=== PATIENT | female | born 1945 | race Caucasian/White ===

== ENCOUNTER 2022-07-03 09:41 | Day surgery (SDC) | payer MEDICARE, SELFPAY ==
[2022-07-03] VITALS (33 sets, daily range): BP systolic 136–175; BP diastolic 56–93; PULSE 67–87; RESP 14–20; TEMP 36.2–37.4; O2SAT 75–100; BMI 20.5
[2022-07-03] MEDS: LACTATED RINGERS 1000 ML 1,000 ML 100 ML IV (10:00)
[2022-07-03] MEDS: SODIUM CHLORIDE 0.9 % (FLUSH) 10 ML SYRINGE IVF (10:50)
[2022-07-03] MEDS: SCOPOLAMINE 1 MG/3 DAY PATCH 1 PATCH TRANSDERMA (12:26)
[2022-07-03] MEDS: CEFAZOLIN 1 GM inj IVP (12:40)
--- NOTE | 2022-07-03 14:04 | SUR.OPER ---
Family, Mehul, updated on procedure.
--- NOTE | 2022-07-03 14:32 | W.ANESCHARGE ---
Anesthesia Charges Start Date/Time Anesthesia Start Date: 07/03/22 Anesthesia Start Time: 12:27 Stop Date/Time Anesthesia Stop Date: 07/03/22 Anesthesia Stop Time: 14:55 Summary Emergency: No Extremes of Age: Over 72-CPT 06995
--- NOTE | 2022-07-03 14:54 | P.GSOP_ITS ---
Operative Note Date of procedure: 07/03/22 Type of Procedure: Same Procedure Description: After discussing the risks and benefits of the procedure, the patient signed informed consent.? The operative site was marked and the patient was brought to the operating room and placed on the operating table in supine position.? Care was taken to pad the patient's pressure points.?? The patient was then given sedation by anesthesia.?? The operative site was then prepped and draped in the usual sterile fashion.? A time-out was then performed. Entrance to the abdomen was gained via a 5 mm Visiport in the left upper quadrant. The abdomen was insufflated and briefly surveyed for signs of injury. There was none. A 10 mm umbilical port was placed as well as 2 working ports along the right costal margin, all under direct vision. The patient was then placed in reverse Trendelenburg position with the right side up. The gallbladder had adhesions on it from the omentum and was actually adherent to the anterior abdominal wall. This was taken down with cautery. The gallbladder was grasped and the omental adhesions were then taken down with cautery. The gallbladder was lifted up and the duodenum was noted to be adherent to the gallbladder. Carefully this was taken down, and the adhesions came down easily with blunt dissection. The infundibulum was a glimpse test as well as the cystic artery. A combination of hook cautery and blunt dissection was used to carefully dissect out the cystic duct and artery until they could clearly be seen entering the gallbladder without any intervening structures. There was a fair amount of chronic inflammation in this area, however due dissection was able to be completed safely. The gallbladder was dissected off the cystic plate to achieve the critical view. The cystic duct was noted to be large and too big for a 5 mm clip. The artery was then clipped with 2 clips proximal 1 clip distal and divided. The cystic duct was clipped proximally with 2 clips and divided with the scissors. An 0 PDS and an 0 Vicryl endoloop were each placed over the cystic duct stump. There were no stones noted in the cystic duct stump. Once this was done the gallbladder was then removed from the liver bed with cautery. The small vessels on the peritoneal edge of the gallbladder were clipped to prevent bleeding after the procedure. The gallbladder was then removed with an Endo-Catch bag. The gallbladder bed was surveyed for hemostasis which appeared adequate. A small amount of bile which had spilled was suctioned from the abdomen. There was a small amount of bleeding noted on the omentum which had been adherent to the g allbladder. Clips were placed and hemostasis appeared excellent, however, a small piece of Surgicel was laid on the raw edge where the gallbladder was laying on the omentum. The remaining ports were then removed and the abdomen desufflated. The fascia of the umbilical incision was closed with 0 Vicryl. The skin was closed with absorbable subcuticular suture. Sterile dressings were applied. Instrument sponge and needle counts were correct at the end of the case. The patient was then woken and transferred to the PACU in stable condition. ? The patient tolerated the procedure well. Findings: Gallbladder with chronic inflammation noted. Anesthesia: GETA Surgeon: Stephanie Lopez MD Estimated blood loss (mL): 25 Condition: stable Disposition: PACU
[2022-07-03] MEDS: fentaNYL 100 MCG/2 ML inj 50 MCG IVP ×2 (15:06→15:16)
[2022-07-03] MEDS: HYDROmorphone 0.5 mg/0.5 ml inj IVP ×4 (15:28→23:14)
[2022-07-03] MEDS: ONDANSETRON 2 MG/ML inj 4 MG IVP ×2 (15:40→15:50)
[2022-07-03] MEDS: METOCLOPRAMIDE HCL 5 MG/ML INJ 10 MG IVP (16:03)
--- NOTE | 2022-07-03 16:21 | W.ANESCHARGE ---
Anesthesia Charges Start Date/Time Anesthesia Start Date: 07/03/22 Anesthesia Start Time: 15:33 Stop Date/Time Anesthesia Stop Date: 07/03/22 Anesthesia Stop Time: 16:21 Summary Emergency: No Extremes of Age: Over 72-CPT 95535
[2022-07-03] MEDS: diphenhydrAMINE 50 MG/ML inj 12.5 MG IVP (16:22)
--- NOTE | 2022-07-03 16:24 | W.ANESCHARGE ---
Anesthesia Charges Start Date/Time Anesthesia Start Date: 07/03/22 Anesthesia Start Time: 12:27 Stop Date/Time Anesthesia Stop Date: 07/03/22 Anesthesia Stop Time: 14:55 Summary Emergency: No Extremes of Age: Over 72-CPT 36620
[2022-07-03] MEDS: LACTATED RINGERS 1000 ML 1,000 ML 35 ML IV (16:28)
--- NOTE | 2022-07-03 19:02 | PC.NURSE ---
Pt. up to floor from same day at 1700. Pt. c/o nausea, zofran administered in pacu. Pt. rates pain 4-5/10 PRN dilauded administered w/relief. 4 lap sites covered w/steri strips C/D/I. Bilateral teds, SCDs on. IV in left hand patent. LR running @ 75mls/hr. ice pack to op site. Pt. will be discharged home w/ tomorrow. Pt. tolerating ice chips, sips of water and juice. Pt. up to BR x2 and voided well. Ambulated w/minimal assistance and tolerated well. Pt. continent of Bowel and Bladder.
--- NOTE | 2022-07-03 23:50 | PC.NURSE ---
Patient states that her nausea is 'better' this evening and denies the need for any Zofran at this time. Able to tolerate some clear liquids. Taking Dilaudid PRN for pain. Up with SBA. Lap sites remain dry and intact.
[2022-07-04] MEDS: HYDROmorphone 0.5 mg/0.5 ml inj IVP (01:54)
[2022-07-04 03:00] VITALS: BP 150/65; PULSE 65; RESP 16; TEMP 36.8; O2SAT 97
[2022-07-04] MEDS: HYDROCODONE-ACETAMIN 5-325 MG 1 TAB PO ×2 (04:38→09:01)
[2022-07-04] MEDS: LACTATED RINGERS 1000 ML 1,000 ML 75 ML IV (04:47)
--- NOTE | 2022-07-04 05:38 | PC.NURSE ---
VSS on RA. Patient is alert and oriented x4, uses call light appropriately. Pain managed with IV Dilaudid x2 and switched oral, [place] x1. IV fluid infusing and pt tolerating well. Continent with bowel and bladder, SDA with transfers. Up to bathroom x3. Pt is comfortable, call light within reach. Staff will continue to monitor per plan of care.
[2022-07-04 07:00] VITALS: BP 141/59; PULSE 66; RESP 20; TEMP 37; O2SAT 97
[2022-07-04] MEDS: lisinopriL 10 MG TABLET PO (09:01)
--- NOTE | 2022-07-04 10:50 | P.DS_ITS ---
DS: Providers Provider Date Seen: 07/04/22 Primary care physician: Felicia Vitale MD Attending Physician on discharge: Stephanie Lopez MD DS: Diagnosis Discharge Diagnosis (1) S/P laparoscopic cholecystectomy: Status: Acute (2) Nausea after anesthesia: Status: Acute DS: Summary Hospital Course Hospital Course: The patient is a 77-year-old female who underwent laparoscopic cholecystectomy for chronic cholecystitis on 07/03/2022. Postoperatively she had significant nausea. This is consistent with the patient's history of nausea after any anesthesia. It was decided she would benefit from an overnight stay in the [facility] to help her nausea get under better control. By postoperative day 1 she was feeling fine and ready to discharge home. Time Spent with Patient Time attestation: Total time spent providing and/or coordinating discharge services: Exam Narrative: Exam Narrative: General: No acute distress Respiratory: Breathing nonlabored on room air Abdomen: Soft, appropriately tender for the postop state. Incisions without erythema. Const: Vital Signs, click to edit/add: Vital Signs - 24 hr 07/03/22 11:05 07/03/22 14:51 07/03/22 14:55 Temperature 98.6 F 97.2 F L Pulse Rate 67 80 84 Pulse Rate [Right Pulse Oximeter] Respiratory Rate 16 16 16 Blood Pressure 161/68 H 152/80 H 144/81 H Blood Pressure [Le ft Arm] Pulse Oximetry 100 99 96 Oxygen Delivery Me thod Room Air Room Air 07/03/22 15:00 07/03/22 15:05 07/03/22 15:10 Temperature Pulse Rate 83 81 81 Pulse Rate [Right Pulse Oximeter] Respiratory Rate 16 15 16 Blood Pressure 160/93 H 164/72 H 161/76 H Blood Pressure [Le ft Arm] Pulse Oximetry 97 96 98 Oxygen Delivery Me thod 07/03/22 15:15 07/03/22 15:20 07/03/22 15:25 Temperature Pulse Rate 82 82 80 Pulse Rate [Right Pulse Oximeter] Respiratory Rate 16 14 16 Blood Pressure 144/67 H 156/67 H 158/66 H Blood Pressure [Le ft Arm] Pulse Oximetry 96 96 96 Oxygen Delivery Me thod 07/03/22 15:30 07/03/22 15:35 07/03/22 15:40 Temperature Pulse Rate 81 80 78 Pulse Rate [Right Pulse Oximeter] Respiratory Rate 16 16 16 Blood Pressure 149/64 H 151/62 H 149/60 H Blood Pressure [Le ft Arm] Pulse Oximetry 96 98 96 Oxygen Delivery Me thod 07/03/22 15:45 07/03/22 15:50 07/03/22 15:55 Temperature Pulse Rate 82 78 74 Pulse Rate [Right Pulse Oximeter] Respiratory Rate 16 18 20 Blood Pressure 150/61 H 152/65 H 151/64 H Blood Pressure [Le ft Arm] Pulse Oximetry 97 97 97 Oxygen Delivery Me thod 07/03/22 16:00 07/03/22 16:05 07/03/22 16:10 Temperature Pulse Rate 75 80 78 Pulse Rate [Right Pulse Oximeter] Respiratory Rate 18 18 18 Blood Pressure 153/63 H 160/65 H 154/70 H Blood Pressure [Le ft Arm] Pulse Oximetry 99 99 99 Oxygen Delivery Me thod 07/03/22 16:15 07/03/22 16:20 07/03/22 16:25 Temperature Pulse Rate 78 75 77 Pulse Rate [Right Pulse Oximeter] Respiratory Rate 16 16 16 Blood Pressure 158/68 H 157/72 H 168/72 H Blood Pressure [Le ft Arm] Pulse Oximetry 99 75 L 98 Oxygen Delivery Me thod 07/03/22 16:30 07/03/22 16:35 07/03/22 16:40 Temperature 99.3 F Pulse Rate 87 83 80 Pulse Rate [Right Pulse Oximeter] Respiratory Rate 18 16 16 Blood Pressure 166/71 H 175/68 H 151/61 H Blood Pressure [Le ft Arm] Pulse Oximetry 98 96 99 Oxygen Delivery Me thod 07/03/22 18:50 07/03/22 17:15 07/03/22 17:30 Temperature 99.3 F 98.0 F 98.0 F Pulse Rate 83 Pulse Rate [Right Pulse Oximeter] 75 75 Respiratory Rate 16 16 16 Blood Pressure Blood Pressure [Le ft Arm] 169/68 H 151/59 H 143/58 H Pulse Oximetry 98 98 Oxygen Delivery Me thod Room Air Room Air Room Air 07/03/22 17:45 07/03/22 18:00 07/03/22 18:30 Temperature 98 F 98.0 F Pulse Rate Pulse Rate [Right Pulse Oximeter] 76 77 84 Respiratory Rate 16 16 16 Blood Pressure Blood Pressure [Le ft Arm] 149/58 H 161/63 H 148/60 H Pulse Oximetry 98 98 98 Oxygen Delivery Me thod Room Air Room Air Room Air 07/03/22 19:00 07/03/22 20:00 07/03/22 23:00 Temperature 98.6 F Pulse Rate Pulse Rate [Right Pulse Oximeter] 84 77 76 Respiratory Rate 16 16 16 Blood Pressure Blood Pressure [Le ft Arm] 141/56 H 136/56 L 140/62 H Pulse Oximetry 97 98 Oxygen Delivery Me thod Room Air Room Air 07/04/22 03:00 07/04/22 07:00 07/04/22 07:00 Temperature 98.3 F 98.6 F Pulse Rate Pulse Rate [Right Pulse Oximeter] 65 66 66 Respiratory Rate 16 20 20 Blood Pressure Blood Pressure [Le ft Arm] 150/65 H 141/59 H Pulse Oximetry 97 97 Oxygen Delivery Me thod Room Air Room Air Discharge Plan Discharge Disposition: Home, Self-Care Discharging Surgeon: Stephanie Lopez Follow-Up Appointment: ThursdayJuly 16 at 8:45 am in [place] [address] Lopez Prescriptions: New hydrocodone-acetaminophen 5-325 mg Tablet 1 tab PO Q6H PRN (Reason: Pain) Qty: 10 0RF Continued fluticasone propionate [Flovent HFA] 220 mcg/actuation HFA aerosol inhaler 2 inh inhalation BID lisinopril 10 mg tablet 10 mg PO DAILY rabeprazole 20 mg tablet,delayed release (DR/EC) 20 mg PO DAILY Activity Level: No strenuous activity Activity Detail: No lifting more than 20 lb for 2 weeks Discharge Diet: Regular Patient Instructions: General Anesthesia (DC), Laparoscopic Cholecystectomy (DC), Post-Operative Instructions: Laparoscopic Cholecystectomy Additional Instructions: Wound care: Your sutures are under the skin and will dissolve over time. Leave steri strips (white bandages) over incisions until they fall off (or remove after 7 days). OK to shower tomorrow but avoid bathing, soaking or swimming for 2 weeks. Pat the incisions dry. No need to wash or scrub the area. Apply ice to the area as needed for swelling. It is also OK to use a heating pad if this provides more comfort to you. Pain control: You were prescribed a pain medication. This medication contains acetaminophen (Tylenol). If you are taking your prescribed pain pills 4 times daily, do not take additional acetaminophen. As your pain improves, you can try taking acetaminophen instead of the prescribed pain pill. It is ok to take Ibuprofen or Naproxen (per directions on packaging). This medi cation helps with inflammation and swelling. Take an [id number] stool softener while you are taking prescribed pain medications to help alleviate constipation. I recommend Senna and/or Colace. Take as directed on package. If you have not had a bowel movement in 3 days, try taking Miralax as directed on the package. All of these are available over the counter. Remove the patch behind your ear 2 days from discharge. Follow-up Follow up with Dr. oLpez in 2-3 weeks Please call if you are experiencing severe pain, nausea, vomiting, difficulty urinating, fever or have not had bowel movement in 4 days after surgery. Follow-up: Stephanie Lopez MD [Staff Physician] - 07/16/22 8:45 am (Follow-up appointment with Dr. Lopez) Discharge Orders: Discharge Order (Routine); Ordered 07/04/22 Ordered By: Stephanie Lopez
== END 2022-07-04 11:30 | disposition home or self-care (01) ==
LOC: OR 14:54 → MEDSURG 17:27
PROVIDERS: PCP Family Medicine; Visit Provider Surgery
PROC: 0FT44ZZ Resection of Gallbladder, Percutaneous Endoscopic Approach (ICD-10-PCS; CPT 47562; principal; 2022-07-03 11:30)
DX: K81.1 Chronic cholecystitis (principal); R11.0 Nausea
CPT/HCPCS: 47562; 00790; 88304; 94640; 99100; A9270; J0330; J0360; J0690; J1100; J1170; J1200; J2405; J2704; J2765; J3010; J7120; J7626